=== PATIENT | male | born 1980 | race Caucasian/White ===

== ENCOUNTER 2016-09-09 16:44 | Emergency (ER) | payer SELFPAY ==
--- NOTE | 2016-09-09 17:22 | ED CLINICAL REPORT ---
Clinical Report - Physicians/Mid Levels [facility] [address] [place] [address] 09/09/2016 16:45 Patient: HELEN TATE Time Seen: 17:07 Sep 09 2016. Arrived- By private vehicle. HISTORY OF PRESENT ILLNESS Chief Complaint: SKIN RASH. This started 4 days. It is described as painful. It has been located on the right ring finger. (reports area of swelling, redness to digit, no injury h/o). REVIEW OF SYSTEMS No fever, cough, difficulty breathing, hoarseness or eye irritation. No nausea. All systems otherwise negative, except as recorded above. PAST HISTORY Tetanus immunization status is up-to-date. SOCIAL HISTORY Smoker- current status unknown. No alcohol use or drug use. ADDITIONAL NOTES The nursing notes have been reviewed. PHYSICAL EXAM Vital Signs: 09/09/2016 16:53 BP: 130/74. HR: 78. RR: 18. O2 saturation: 99%. Temp: 97.9 F. Pain level now: 4/10. Appearance: Alert. No acute distress. ENT: Ears normal. Nose normal. CVS: Normal heart rate and rhythm. Heart sounds normal. Respiratory: No respiratory distress. Breath sounds normal. Skin: Skin warm. Erythema (on radial aspect of 4th digit with erythema at edge of nail, no baum swelling). Tender indurated area. Cellulitis. There is warmth, tenderness and swelling. Extremities: Extremities nontender. PROGRESS AND PROCEDURES Incision & Drainage of Abscess: Time: 17:30 Sep 09 2016. Time-out completed immediately before the procedure. The abscess is located (r. 4th digit, ring finger). The risks of the procedure, benefits and alternatives were explained. Consent was obtained. Anesthesia provided by digital block using 0.50% Marcaine no epi. Skin cleansed with Betadine. The abscess was incised with a #11 surgical blade. A small amount of pus was drained. Course of Care: no signs of tenosynovitis, good rom/ good strength. no lymphagetic streaking, no baum surface swelling/ erythema or tenderness, no signs of felon. NO injury h/o Isolated paronychia that has not been treated. Patient is stable. Physical exam findings are improved. Symptoms better. Patient/family counseled. Disposition: Discharged. CLINICAL IMPRESSION Paronychia right ring finger. INSTRUCTIONS (warm soaks with salt water to finger for 5 mins about 4-5 x daily elevate motrin/tylenol). Prescription Medications: Keflex 500 mg: take 1 capsule orally every 6 hours for 10 days. No refill. Substitution is permissible. OTC Medications: Take OTC medications according to label instructions. Available over the counter. Acetaminophen (available over the counter): take according to label instructions. Motrin (available over the counter): take according to label instructions. Follow-up: Follow up with your doctor Tuesday in three days as needed. (Electronically signed by Bernice Peguero P.A.-C 09/09/2016 17:32)
--- NOTE | 2016-09-09 17:22 | ED ORDER SUMMARY ---
..... Patient: HELEN TATE OrderSheet [facility] VisitID: [id number] [address] [address] 36y, M Registration Date/Time: 09/09/2016 ORDER SHEET Weight: 90.7 kg (stated) Allergies: No Known Drug Allergy GENERAL ORDERS: MEDICATION ORDERS: Keflex PO 500 mg (NOW) (17:22 09/09/2016 Dinh Darling) (17:41 Teresa Pineda) IV FLUIDS: ORDER SHEET NOTES: [Electronically signed by Bernice Peguero P.A.-C (17:32 09/09/2016)] [Electronically signed by Priscilla Zafar R.N. (17:43 09/09/2016)] [Electronically locked/signed by Priscilla Zafar R.N. (17:43 09/09/2016)]
--- NOTE | 2016-09-09 17:22 | ED NURSING NOTES ---
Clinical Report - Nurses [address] [place] [address] 09/09/2016 16:45 Patient: HELEN TATE TRIAGE Triage time 16:52. Acuity: LEVEL 4. Chief Complaint: RIGHT UPPER EXTREMITY PAIN, SWELLING and REDNESS. Alert. No acute distress. SEPSIS SCREEN: Sepsis Screen: negative. Negative (no infection suspected/documented). MARIE COMA SCORE: [place] Coma Scale: 15- eyes open spontaneously (4); best verbal response- oriented x 4 (5); best motor response- obeys commands (6). --16:57 Priscilla Zafar R.N. 16:53 09/09/16. BP: 130/74 taken on the left arm, while sitting. HR: 78. RR: 18. O2 saturation: 99%. Temp: 97.9 F. Pain level now: 11/15. --16:57 Priscilla Zafar R.N. 16:53 09/09/16. BP: 130/74 taken on the left arm, while sitting. HR: 78. RR: 18. O2 saturation: 99%. Temp: 97.9 F. Pain level now: 11/15. --16:57 Priscilla Zafar R.N. Weight: 90.7 kg stated. Height/Length: 72 inches Per Patient. BMI: 27.1. --16:57 Priscilla Zafar R.N. Medications None. --16:55 Priscilla Zafar R.N. Medication/allergy information source: the patient. --16:57 Priscilla Zafar R.N. Allergies No Known Drug Allergy. --16:55 Priscilla Zafar R.N. History Arrived by private vehicle. Historian: patient. No primary care physician. An injury may have occurred. Location of injuries: right hand. This occurred (3 days ago, painful prior to the swelling). It is described as radiating (base of the finger.). ( "Maybe a spider bite "). He has had swelling and redness. No itching. Treatment REPORT WRITER: None. PAST MEDICAL HX: Negative. Tetanus status: unknown. SURGERY HX: No history of previous surgery. SOCIAL HX: Heavy tobacco smoker- less than 1 pack per day. No alcohol use or drug use. FALL RISK ASSESSMENT: Fall risk assessment completed. No fall risk identified. NUTRITIONAL RISK ASSESSMENT: The nutritional risk assessment revealed no deficiencies. FUNCTIONAL ASSESSMENT: Functional assessment: no impairments noted. LEARNING NEEDS ASSESSMENT: The learning needs assessment revealed no barriers. SKIN INTEGRITY ASSESSMENT: Skin integrity risk assessment completed. No skin integrity risk identified. --16:57 Priscilla Zafar R.N. Interventions ID band on patient. To room. --16:57 Priscilla Zafar R.N. PHYSICAL ASSESSMENT Ambulatory to room. Patient gowned. GENERAL / NEURO / PSYCH: Appears in pain and anxious. EXTREMITIES: Erythema on the extremities. Limited ROM present. Upper extremity edema. Right hand. SKIN: Skin intact. Skin is warm and dry. --16:58 Priscilla Zafar R.N. NURSING PROGRESS NOTES Extremity elevated. Patient gowned. Two patient identifiers checked. Call light placed in reach. Side rails up x 1. Bed placed in lowest position. Brakes of bed on. --16:58 Priscilla Zafar R.N. 17:31 09/09/2016 Keflex (Cephalexin) PO 500 mg given. Allergies verified and confirmed 5 rights. --17:41 Priscilla Zafar R.N. 17:30. Applied clean dressing consisting of Band-Aid, following the application of antibiotic ointment (To rt ring finger wound). --17:42 Priscilla Zafar R.N. DISPOSITION / DISCHARGE Condition at departure: improved. No learning barriers present. Discharge instructions provided and reviewed with the patient. Reviewed medication(s) side effects, precautions, dosing and course information. Prescription(s) given to the patient. Patient verbalized understanding. Written instructions provided in [place]. The patient was discharged home. He left the Emergency Department ambulatory and via private vehicle. Patient driving. Medication list reviewed and validated. --17:42 Priscilla Zafar R.N. 16:53 09/09/16. BP: 130/74 taken on the left arm, while sitting. HR: 78. RR: 18. O2 saturation: 99%. Temp: 97.9 F. Pain level now: 11/15. --17:42 Priscilla Zafar R.N. Locked/Released at 09/09/2016 17:43 by Priscilla Zafar R.N.
--- NOTE | 2016-09-09 17:22 | ED NURSING NOTES ---
Clinical Report - Nurses [address] [address] [place] [address] 09/09/2016 16:45 Patient: HELEN TATE TRIAGE Triage time 16:52. Acuity: LEVEL 4. Chief Complaint: RIGHT UPPER EXTREMITY PAIN, SWELLING and REDNESS. Alert. No acute distress. SEPSIS SCREEN: Sepsis Screen: negative. Negative (no infection suspected/documented). MARIE COMA SCORE: [place] Coma Scale: 15- eyes open spontaneously (4); best verbal response- oriented x 4 (5); best motor response- obeys commands (6). --16:57 Priscilla Zafar R.N. 16:53 09/09/16. BP: 130/74 taken on the left arm, while sitting. HR: 78. RR: 18. O2 saturation: 99%. Temp: 97.9 F. Pain level now: 11/15. --16:57 Priscilla Zafar R.N. 16:53 09/09/16. BP: 130/74 taken on the left arm, while sitting. HR: 78. RR: 18. O2 saturation: 99%. Temp: 97.9 F. Pain level now: 11/15. --16:57 Priscilla Zafar R.N. Weight: 90.7 kg stated. Height/Length: 72 inches Per Patient. BMI: 27.1. --16:57 Priscilla Zafar R.N. Medications None. --16:55 Priscilla Zafar R.N. Medication/allergy information source: the patient. --16:57 Priscilla Zafar R.N. Allergies No Known Drug Allergy. --16:55 Priscilla Zafar R.N. History Arrived by private vehicle. Historian: patient. No primary care physician. An injury may have occurred. Location of injuries: right hand. This occurred (3 days ago, painful prior to the swelling). It is described as radiating (base of the finger.). ( "Maybe a spider bite "). He has had swelling and redness. No itching. Treatment BRAKE TESTER: None. PAST MEDICAL HX: Negative. Tetanus status: unknown. SURGERY HX: No history of previous surgery. SOCIAL HX: Heavy tobacco smoker- less than 1 pack per day. No alcohol use or drug use. FALL RISK ASSESSMENT: Fall risk assessment completed. No fall risk identified. NUTRITIONAL RISK ASSESSMENT: The nutritional risk assessment revealed no deficiencies. FUNCTIONAL ASSESSMENT: Functional assessment: no impairments noted. LEARNING NEEDS ASSESSMENT: The learning needs assessment revealed no barriers. SKIN INTEGRITY ASSESSMENT: Skin integrity risk assessment completed. No skin integrity risk identified. --16:57 Priscilla Zafar R.N. Interventions ID band on patient. To room. --16:57 Priscilla Zafar R.N. PHYSICAL ASSESSMENT Ambulatory to room. Patient gowned. GENERAL / NEURO / PSYCH: Appears in pain and anxious. EXTREMITIES: Erythema on the extremities. Limited ROM present. Upper extremity edema. Right hand. SKIN: Skin intact. Skin is warm and dry. --16:58 Priscilla Zafar R.N. NURSING PROGRESS NOTES Extremity elevated. Patient gowned. Two patient identifiers checked. Call light placed in reach. Side rails up x 1. Bed placed in lowest position. Brakes of bed on. --16:58 Priscilla Zafar R.N. 17:31 09/09/2016 Keflex (Cephalexin) PO 500 mg given. Allergies verified and confirmed 5 rights. --17:41 Priscilla Zafar R.N. 17:30. Applied clean dressing consisting of Band-Aid, following the application of antibiotic ointment (To rt ring finger wound). --17:42 Priscilla Zafar R.N. DISPOSITION / DISCHARGE Condition at departure: improved. No learning barriers present. Discharge instructions provided and reviewed with the patient. Reviewed medication(s) side effects, precautions, dosing and course information. Prescription(s) given to the patient. Patient verbalized understanding. Written instructions provided in Dutch. The patient was discharged home. He left the Emergency Department ambulatory and via private vehicle. Patient driving. Medication list reviewed and validated. --17:42 Priscilla Zafar R.N. 16:53 09/09/16. BP: 130/74 taken on the left arm, while sitting. HR: 78. RR: 18. O2 saturation: 99%. Temp: 97.9 F. Pain level now: 11/15. --17:42 Priscilla Zafar R.N. Locked/Released at 09/09/2016 17:43 by Priscilla Zafar R.N.
--- NOTE | 2016-09-09 17:22 | ED CLINICAL REPORT ---
Clinical Report - Physicians/Mid Levels [facility] [address] [place] [address] 09/09/2016 16:45 Patient: HELEN TATE Time Seen: 17:07 Sep 09 2016. Arrived- By private vehicle. HISTORY OF PRESENT ILLNESS Chief Complaint: SKIN RASH. This started 4 days. It is described as painful. It has been located on the right ring finger. (reports area of swelling, redness to digit, no injury h/o). REVIEW OF SYSTEMS No fever, cough, difficulty breathing, hoarseness or eye irritation. No nausea. All systems otherwise negative, except as recorded above. PAST HISTORY Tetanus immunization status is up-to-date. SOCIAL HISTORY Smoker- current status unknown. No alcohol use or drug use. ADDITIONAL NOTES The nursing notes have been reviewed. PHYSICAL EXAM Vital Signs: 09/09/2016 16:53 BP: 130/74. HR: 78. RR: 18. O2 saturation: 99%. Temp: 97.9 F. Pain level now: 4/10. Appearance: Alert. No acute distress. ENT: Ears normal. Nose normal. CVS: Normal heart rate and rhythm. Heart sounds normal. Respiratory: No respiratory distress. Breath sounds normal. Skin: Skin warm. Erythema (on radial aspect of 4th digit with erythema at edge of nail, no baum swelling). Tender indurated area. Cellulitis. There is warmth, tenderness and swelling. Extremities: Extremities nontender. PROGRESS AND PROCEDURES Incision & Drainage of Abscess: Time: 17:30 Sep 09 2016. Time-out completed immediately before the procedure. The abscess is located (r. 4th digit, ring finger). The risks of the procedure, benefits and alternatives were explained. Consent was obtained. Anesthesia provided by digital block using 0.50% Marcaine no epi. Skin cleansed with Betadine. The abscess was incised with a #11 surgical blade. A small amount of pus was drained. Course of Care: no signs of tenosynovitis, good rom/ good strength. no lymphagetic streaking, no baum surface swelling/ erythema or tenderness, no signs of felon. NO injury h/o Isolated paronychia that has not been treated. Patient is stable. Physical exam findings are improved. Symptoms better. Patient/family counseled. Disposition: Discharged. CLINICAL IMPRESSION Paronychia right ring finger. INSTRUCTIONS (warm soaks with salt water to finger for 5 mins about 4-5 x daily elevate motrin/tylenol). Prescription Medications: Keflex 500 mg: take 1 capsule orally every 6 hours for 10 days. No refill. Substitution is permissible. OTC Medications: Take OTC medications according to label instructions. Available over the counter. Acetaminophen (available over the counter): take according to label instructions. Motrin (available over the counter): take according to label instructions. Follow-up: Follow up with your doctor Tuesday in three days as needed. (Electronically signed by Bernice Peguero P.A.-C 09/09/2016 17:32)
--- NOTE | 2016-09-09 17:22 | ED ORDER SUMMARY ---
..... Patient: HELEN TATE OrderSheet [facility] VisitID: [id number] [address] [place] [address] 36y, M Registration Date/Time: 09/09/2016 ORDER SHEET Weight: 90.7 kg (stated) Allergies: No Known Drug Allergy GENERAL ORDERS: MEDICATION ORDERS: Keflex PO 500 mg (NOW) (17:22 09/09/2016 Dinh Darling) (17:41 Teresa Pineda) IV FLUIDS: ORDER SHEET NOTES: [Electronically signed by Bernice Peguero P.A.-C (17:32 09/09/2016)] [Electronically signed by Priscilla Zafar R.N. (17:43 09/09/2016)] [Electronically locked/signed by Priscilla Zafar R.N. (17:43 09/09/2016)]
--- NOTE | 2016-09-09 17:43 | ED DISCHARGE INSTRUCTIONS ---
Patient: HELEN TATE General Instructions [facility] VisitID: [id number] [place] [address] 36y, M Registration Date/Time: 09/09/2016 Paronychia right ring finger. INSTRUCTIONS (warm soaks with salt water to finger for 5 mins about 4-5 x daily elevate motrin/tylenol). Prescription Medications: Keflex 500 mg: take 1 capsule orally every 6 hours for 10 days. No refill. Substitution is permissible. OTC Medications: Take OTC medications according to label instructions. Available over the counter. Acetaminophen (available over the counter): take according to label instructions. Motrin (available over the counter): take according to label instructions. Follow-up: Follow up with your doctor Tuesday in three days as needed. ADDITIONAL INFORMATION Paronychia, Finger Or Toe Paronychia is an infection alongside the fingernail or toenail. It usually occurs from an opening in the cuticle or an ingrown toenail which lets bacteria under the skin. If there is pus present, the infection will need to be drained. If the infection is early, antibiotic treatment alone may be all that you need. Healing will take about 12 weeks. Home care The following guidelines will help you care for your wound at home: Twice a day for the first three days, clean and soak the toe or finger as follows: Soak your foot or hand in a tub of warm water for five minutes. Or, hold your toe or finger under a faucet of warm running water for five minutes. Clean any remaining crust away with soap and water using a cotton-tipped applicator. Apply antibiotic ointment to the infected area. Change the dressing daily or whenever it becomes soiled. If you were prescribed antibiotics, take them as directed until they are all gone. If your infection is on a toe, wear comfortable shoes with a lot of toe room, or open-toe sandals, while your toe is healing. You may use acetaminophen or ibuprofen to control pain, unless another medicine was prescribed.If you have chronic liver or kidney disease or ever had a stomach ulcer or GI bleeding, talk with your doctor before using these medicines. Follow-up care Follow up with your doctor or this facility as explained by our staff. When to seek medical care Get prompt medical attention if any of the following occur: Increasing redness, pain or swelling of the finger or toe Red streaks in the skin leading away from the wound Pus or fluid drainage Fever of 100.4F (38C) or higher, or as directed by your health care provider Cephalexin Monohydrate Oral tablet What is this medicine? CEPHALEXIN (sef a WANDA in) is a cephalosporin antibiotic. It is used to treat certain kinds of bacterial infections It will not work for colds, flu, or other viral infections. How should I use this medicine? Take this medicine by mouth with a full glass of water. Follow the directions on the prescription label. This medicine can be taken with or without food. Take your medicine at regular intervals. Do not take your medicine more often than directed. Take all of your medicine as directed even if you think you are better. Do not skip doses or stop your medicine early. Talk to your streetsweeper operator regarding the use of this medicine in children. While this drug may be prescribed for selected conditions, precautions do apply. What side effects may I notice from receiving this medicine? Side effects that you should report to your doctor or health rn patient care as soon as possible: allergic reactions like skin rash, itching or hives, swelling of the face, lips, or tongue breathing problems pain or trouble passing urine redness, blistering, peeling or loosening of the skin, including inside the mouth severe or watery diarrhea unusually weak or tired yellowing of the eyes, skin Side effects that usually do not require medical attention (report to your doctor or health rn patient care if they continue or are bothersome): gas or heartburn genital or anal irritation headache joint or muscle pain nausea, vomiting What may interact with this medicine? probenecid some other antibiotics What if I miss a dose? If you miss a dose, take it as soon as you can. If it is almost time for your next dose, take only that dose. Do not take double or extra doses. There should be at least 4 to 6 hours between doses. Where should I keep my medicine? Keep out of the reach of children. Store at room temperature between 59 and 86 degrees F (15 and 30 degrees C). Throw away any unused medicine after the expiration date. What should I tell my health care provider before I take this medicine? They need to know if you have any of these conditions: kidney disease stomach or intestine problems, especially colitis an unusual or allergic reaction to cephalexin, other cephalosporins, penicillins, other antibiotics, medicines, foods, dyes or preservatives or trying to get breast-feeding What should I watch for while using this medicine? Tell your doctor or health rn patient care if your symptoms do not begin to improve in a few days. Do not treat diarrhea with over the counter products. Contact your doctor if you have diarrhea that lasts more than 2 days or if it is severe and watery. If you have diabetes, you may get a false-positive result for sugar in your urine. Check with your doctor or health rn patient care. You have been given the following additional information: Paronychia Cephalexin Monohydrate Oral tablet (Electronically signed by Bernice Peguero P.A.-C 09/09/2016 17:32)
--- NOTE | 2016-09-09 17:43 | ED MED RECONCILIATION SUMMARY ---
Patient: HELEN TATE Medication Reconciliation Report [facility] VisitID: [id number] [address] [place] [place] [address] 36y, M Registration Date/Time: 09/09/2016 Weight: 90.7 kg Height/Length: 72 in. BMI: 27.1 ALLERGIES: No Known Drug Allergy The patient's Home Medications are listed below: NONE. The source(s) of the original Home Medication information: patient The following Medications were given to the patient in the Emergency Department: Keflex [PO] PO 500 mg, administered: 09/09/2016 5:31:00 PM The following Medications were prescribed to the patient: Take OTC medications according to label instructions. Available over the counter. -- Bernice Peguero, P.A.-C Acetaminophen (available over the counter): take according to label instructions. -- Bernice Peguero, P.A.-C Motrin (available over the counter): take according to label instructions. -- Bernice Peguero, P.A.-C Keflex 500 mg: take 1 capsule orally every 6 hours for 10 days. No refill. Substitution is permissible. -- Bernice Peguero, P.A.-C
--- NOTE | 2016-09-09 17:43 | ED MAR SUMMARY ---
..... Medication Administration Record [facility] [address] [place] [address] Patient: HELEN TATE Visit ID: [id number] 36y, M Weight: 90.7 kg Height/Length: 72 in BMI: 27.1 ALLERGIES: No Known Drug Allergy Given 17:31 09/09/2016 Priscilla Zafar R.N. Medication Administered: KEFLEX [PO] (CEPHALEXIN), Dose: 500 mg PO. Medication Ordered: Keflex PO 500 mg (NOW).
--- NOTE | 2016-09-09 17:43 | ED DISCHARGE INSTRUCTIONS ---
Patient: HELEN TATE General Instructions [facility] VisitID: [id number] [place] [address] 36y, M Registration Date/Time: 09/09/2016 Paronychia right ring finger. INSTRUCTIONS (warm soaks with salt water to finger for 5 mins about 4-5 x daily elevate motrin/tylenol). Prescription Medications: Keflex 500 mg: take 1 capsule orally every 6 hours for 10 days. No refill. Substitution is permissible. OTC Medications: Take OTC medications according to label instructions. Available over the counter. Acetaminophen (available over the counter): take according to label instructions. Motrin (available over the counter): take according to label instructions. Follow-up: Follow up with your doctor Tuesday in three days as needed. ADDITIONAL INFORMATION Paronychia, Finger Or Toe Paronychia is an infection alongside the fingernail or toenail. It usually occurs from an opening in the cuticle or an ingrown toenail which lets bacteria under the skin. If there is pus present, the infection will need to be drained. If the infection is early, antibiotic treatment alone may be all that you need. Healing will take about 12 weeks. Home care The following guidelines will help you care for your wound at home: Twice a day for the first three days, clean and soak the toe or finger as follows: Soak your foot or hand in a tub of warm water for five minutes. Or, hold your toe or finger under a faucet of warm running water for five minutes. Clean any remaining crust away with soap and water using a cotton-tipped applicator. Apply antibiotic ointment to the infected area. Change the dressing daily or whenever it becomes soiled. If you were prescribed antibiotics, take them as directed until they are all gone. If your infection is on a toe, wear comfortable shoes with a lot of toe room, or open-toe sandals, while your toe is healing. You may use acetaminophen or ibuprofen to control pain, unless another medicine was prescribed.If you have chronic liver or kidney disease or ever had a stomach ulcer or GI bleeding, talk with your doctor before using these medicines. Follow-up care Follow up with your doctor or this facility as explained by our staff. When to seek medical care Get prompt medical attention if any of the following occur: Increasing redness, pain or swelling of the finger or toe Red streaks in the skin leading away from the wound Pus or fluid drainage Fever of 100.4F (38C) or higher, or as directed by your health care provider Cephalexin Monohydrate Oral tablet What is this medicine? CEPHALEXIN (sef a WANDA in) is a cephalosporin antibiotic. It is used to treat certain kinds of bacterial infections It will not work for colds, flu, or other viral infections. How should I use this medicine? Take this medicine by mouth with a full glass of water. Follow the directions on the prescription label. This medicine can be taken with or without food. Take your medicine at regular intervals. Do not take your medicine more often than directed. Take all of your medicine as directed even if you think you are better. Do not skip doses or stop your medicine early. Talk to your authorization manager regarding the use of this medicine in children. While this drug may be prescribed for selected conditions, precautions do apply. What side effects may I notice from receiving this medicine? Side effects that you should report to your doctor or health career services assistant as soon as possible: allergic reactions like skin rash, itching or hives, swelling of the face, lips, or tongue breathing problems pain or trouble passing urine redness, blistering, peeling or loosening of the skin, including inside the mouth severe or watery diarrhea unusually weak or tired yellowing of the eyes, skin Side effects that usually do not require medical attention (report to your doctor or health career services assistant if they continue or are bothersome): gas or heartburn genital or anal irritation headache joint or muscle pain nausea, vomiting What may interact with this medicine? probenecid some other antibiotics What if I miss a dose? If you miss a dose, take it as soon as you can. If it is almost time for your next dose, take only that dose. Do not take double or extra doses. There should be at least 4 to 6 hours between doses. Where should I keep my medicine? Keep out of the reach of children. Store at room temperature between 59 and 86 degrees F (15 and 30 degrees C). Throw away any unused medicine after the expiration date. What should I tell my health care provider before I take this medicine? They need to know if you have any of these conditions: kidney disease stomach or intestine problems, especially colitis an unusual or allergic reaction to cephalexin, other cephalosporins, penicillins, other antibiotics, medicines, foods, dyes or preservatives or trying to get breast-feeding What should I watch for while using this medicine? Tell your doctor or health career services assistant if your symptoms do not begin to improve in a few days. Do not treat diarrhea with over the counter products. Contact your doctor if you have diarrhea that lasts more than 2 days or if it is severe and watery. If you have diabetes, you may get a false-positive result for sugar in your urine. Check with your doctor or health career services assistant. You have been given the following additional information: Paronychia Cephalexin Monohydrate Oral tablet (Electronically signed by Bernice Peguero P.A.-C 09/09/2016 17:32)
--- NOTE | 2016-09-09 17:43 | ED MED RECONCILIATION SUMMARY ---
Patient: HELEN TATE Medication Reconciliation Report [facility] VisitID: [id number] [address] [place] [place] [address] 36y, M Registration Date/Time: 09/09/2016 Weight: 90.7 kg Height/Length: 72 in. BMI: 27.1 ALLERGIES: No Known Drug Allergy The patient's Home Medications are listed below: NONE. The source(s) of the original Home Medication information: patient The following Medications were given to the patient in the Emergency Department: Keflex [PO] PO 500 mg, administered: 09/09/2016 5:31:00 PM The following Medications were prescribed to the patient: Take OTC medications according to label instructions. Available over the counter. -- Bernice Peguero, P.A.-C Acetaminophen (available over the counter): take according to label instructions. -- Bernice Peguero, P.A.-C Motrin (available over the counter): take according to label instructions. -- Bernice Peguero, P.A.-C Keflex 500 mg: take 1 capsule orally every 6 hours for 10 days. No refill. Substitution is permissible. -- Bernice Peguero, P.A.-C
--- NOTE | 2016-09-09 17:43 | ED MAR SUMMARY ---
..... Medication Administration Record [facility] [address] [place] [address] Patient: HELEN TATE Visit ID: [id number] 36y, M Weight: 90.7 kg Height/Length: 72 in BMI: 27.1 ALLERGIES: No Known Drug Allergy Given 17:31 09/09/2016 Priscilla Zafar R.N. Medication Administered: KEFLEX [PO] (CEPHALEXIN), Dose: 500 mg PO. Medication Ordered: Keflex PO 500 mg (NOW).
== END 2016-09-09 17:35 | disposition home or self-care (01) ==
LOC: ED SRH 16:44
DX: L03.011 Cellulitis of right finger (principal)

== ENCOUNTER 2016-12-21 19:25 | Emergency (ER) | payer SELFPAY ==
--- NOTE | 2016-12-21 21:12 | ED ORDER SUMMARY ---
..... Patient: HELEN TATE OrderSheet [facility] VisitID: [id number] [place] [address] 36y, M Registration Date/Time: 12/21/2016 ORDER SHEET Weight: 88.4 kg (stated) Allergies: None GENERAL ORDERS: Wound Irrigation (19:55 12/21/2016 RMarsden R.N. per protocol) (19:55 RMarsden R.N.) Dress Wounds (21:12/21/2016 RMarsden R.N. per protocol) (21:05 RMarsden R.N.) MEDICATION ORDERS: LET Topical 1 application (NOW) (19:55 12/21/2016 RMarsden R.N. per protocol) (19:56 RMarsden R.N.) Hydrocodone-APAP PO 5/325 mg (NOW, HIGH ALERT MEDICATION) (20:33 12/21/2016 Liana Pastor) (Ack 20:46 Josepiveantonio R.N.) (20:47 RMarsangus R.N.) IV FLUIDS: ORDER SHEET NOTES: [Electronically signed by Ta Guadarrama Dr. (21:20 12/21/2016)] [Electronically signed by Igor Arguelles R.N. (21:33 12/21/2016)] [Electronically signed by Igor Arguelles R.N. (21:33 12/21/2016)] [Electronically locked/signed by Igor Arguelles R.N. (:33 12/21/2016)]
--- NOTE | 2016-12-21 21:12 | ED CLINICAL REPORT ---
Clinical Report - Physicians/Mid Levels [facility] [address] [place] [address] 12/21/2016 19:30 Patient: HELEN TATE Time Seen: 19:43; initial patient contact. HISTORY OF PRESENT ILLNESS Chief Complaint: INJURY TO FACE. Location of injuries- face. The injury occurred just prior to arrival. Occurred at home. The patient sustained a single moderate blow with a stick. The patient complains of moderate pain. The patient sustained a moderate blow to the head. No neck pain, loss of consciousness or seizure. Not dazed. REVIEW OF SYSTEMS No seizure, numbness, hearing loss or difficulty breathing. He sustained skin laceration. All systems otherwise negative, except as recorded above. PAST HISTORY Paronychia. Tetanus immunization status is up-to-date. Additional Surgeries: no known surgeries. Medications: None. Allergies: None. SOCIAL HISTORY Current every day smoker. No alcohol use or drug use. ADDITIONAL NOTES The nursing notes have been reviewed. PHYSICAL EXAM Vital Signs: 12/21/2016 19:35 BP: 136/84. HR: 81. RR: 15. O2 saturation: 97%. Temp: 98 F. Pain level now: 6/10. Have been reviewed as normal. Appearance: Alert. No acute distress. Head: No swelling of head. Eyes: Pupils equal, round and reactive to light. EOM intact. ENT: No dental injury. Neck: Painless ROM. Non-tender. Skin: Single medium-sized, subcutaneous, stellate 4.0 cm laceration to face. Neuro: Oriented X 3. PROGRESS AND PROCEDURES Laceration Repair: Time: 21:11. Location: face. Per protocol, time-out completed immediately before the procedure. Length: 4 cm. Complexity: complex (requiring alignment of multiple flaps and revision of wound margins). Wound depth/shape- subcutaneous, stellate and irregular. Distal neuro/vascular/tendon status normal. Local anesthesia provided using 1% lidocaine. Prepped with Hibiclens. Wound explored, irrigated and examined to the base in bloodless field extensively with normal saline. Closure of superficial layer: 4-0 Prolene (6 sutures). Post-procedure: he is stable and there are no complications. Bleeding is controlled and neuro-vascular status is intact distal to the wound. Tetanus immunization up-to-date. Estimated blood loss: 5 mL. Disposition: Discharged home in good and improved condition. Condition: good. CLINICAL IMPRESSION Single deep laceration. Complicated repair (Right preauricular area). INSTRUCTIONS Protect wound and keep wound area clean. You may wash wounds briefly, then dry. Apply bacitracin twice daily. Sutures/tony should be removed in five days. Prescription Medications: Hydrocodone/APAP 5mg / 325mg: take 1 orally every 6 hours as needed for pain. Dispense fifteen (15). No refill. Follow-up: Screening today revealed the patient's blood pressure to be in the normal range. Follow-up with: [facility], [facility], , [address] [place] [address], [address] [place] [address] Follow up in five for suture removal. Call for an appointment. (Electronically signed by Ta Guadarrama Dr. 12/21/2016 21:20)
--- NOTE | 2016-12-21 21:12 | ED NURSING NOTES ---
Clinical Report - Nurses [facility] [address] [place] [address] 12/21/2016 19:30 Patient: HELEN TATE TRIAGE Triage time 19:35. Acuity: LEVEL 4. Chief Complaint: INJURY TO HEAD. 19:40 12/21/16. Alert. No acute distress. SEPSIS SCREEN: Sepsis Screen. Negative (no infection suspected/documented). FERNANDO COMA SCORE: Fernando Coma Scale: 15- eyes open spontaneously (4); best verbal response- oriented x 4 (5); best motor response- obeys commands (6). --19:40 Dariana Stevenson R.N. 19:35 12/21/16. BP: 136/84. HR: 81. RR: 15. O2 saturation: 97%. Temp: 98 F. Pain level now: 01/15. --19:40 Dariana Stevenson R.N. Weight: 88.4 kg stated. Height/Length: 75 inches Per Patient. BMI: 24.4. --19:38 Dariana Stevenson R.N. Medications None. --19:37 Dariana Stevenson R.N. Allergies None. --19:37 Dariana Stevenson R.N. History Arrived by private vehicle. Historian: patient. Accompanied by friend. Primary physician (No PCP). This occurred just prior to arrival. Occurred at friend's house. He sustained a laceration. Mechanism of injury: a blow. ( Patient states "I was using a wood inspector plug seam and a branch fell and hit me on the head"). He has had a headache. No loss of consciousness. No neck pain. Treatment FOSTER PARENT: None. PAST MEDICAL HX: Tetanus status: up-to-date. Immunizations: up-to-date. SOCIAL HX: Heavy tobacco smoker- 1 pack per day. No alcohol use or drug use. FALL RISK ASSESSMENT: Fall risk assessment completed. No fall risk identified. NUTRITIONAL RISK ASSESSMENT: The nutritional risk assessment revealed no deficiencies. FUNCTIONAL ASSESSMENT: Functional assessment: no impairments noted. LEARNING NEEDS ASSESSMENT: The learning needs assessment revealed no barriers. SKIN INTEGRITY ASSESSMENT: Skin integrity risk assessment completed. No skin integrity risk identified. --19:40 Dariana Stevenson R.N. PROBLEMS: Paronychia. --19:37 Dariana Stevenson R.N. ADDITIONAL SURGERIES: no known surgeries. Interventions ID band on patient. To treatment room. --19:40 Daraina Stevenson R.N. PHYSICAL ASSESSMENT 19:42 12/21/16. Ambulatory to room. GENERAL / NEURO / PSYCH: Alert. Oriented X 4. Appears in no acute distress. HEENT: Head: tenderness and laceration present in the right temporal area. Pupils equal, round and reactive to light. Voice within normal limits. No dental injury noted. Mucous membranes are pink. CVS: Capillary refill less than 2 seconds. BACK: ROM normal to the neck and back. SKIN: Skin is warm and dry. --19:42 Dariana Stevenson R.N. NURSING PROGRESS NOTES 19:42 12/21/16. Two patient identifiers checked. Call light placed in reach. Bed placed in lowest position. Brakes of bed on. Patient ready for evaluation- chart flagged and notification provided. Patient informed about reason for wait and about plan of care. --19:42 Dariana Stevenson R.N. 19:56 12/21/2016 LET Topical Topical Solution 1 application. Placed on a cotton ball. Allergies verified and confirmed 5 rights. --19:56 Dariana Stevenson R.N. 20:47 12/21/2016 Hydrocodone-APAP (Hydrocodone-Acetaminophen) PO 5/325 mg Tablets 1 tab given. Allergies verified, confirmed 5 rights and sedative warning given to the patient. --20:47 Dariana Stevenson R.N. <<STRICKEN ENTRY-- 20:56 12/21/16. BP: 91/53. HR: 77. RR: 17. O2 saturation: 100%. Temp: deferred. Pain level now: 02/14. --21:01 Dariana Stevenson R.N. --END STRIKE>> Correction. --21:11 Dariana Stevenson R.N. 20:56 12/21/16. BP: 115/77 (regular adult cuff) taken on the left arm, while sitting. HR: 77. RR: 17. O2 saturation: 100%. Temp: deferred. Pain level now: 02/14. --21:01 Dariana Stevenson R.N. 21:05 12/21/2016 LET Topical Response: no adverse reaction pain is gone now. Symptoms have improved the patient feels better. 12/21/2016 20:56 BP: 91/53. HR: 77. RR: 17. O2 saturation: 100%. Pain level now: 02/14. --21:06 Dariana Stevenson R.N. 21:06 12/21/2016 Hydrocodone-APAP PO Response: no adverse reaction pain is gone now. Symptoms have improved the patient feels better. 12/21/2016 20:56 BP: 91/53. HR: 77. RR: 17. O2 saturation: 100%. Pain level now: 02/14. --21:06 Dariana Stevenson R.N. 20:56 12/21/16. BP: 115/77 (regular adult cuff) taken on the left arm, while sitting. HR: 77. RR: 17. O2 saturation: 100%. Temp: deferred. Pain level now: 02/14. --21:12 Dariana Stevenson R.N. 21:04. WOUND REPAIR: Wound repair performed by ED physician. Assisted by one tech. The wound is located on the right ear. Preparation. Wound cleansed per physician and irrigated per physician. Procedure: wound repaired with sutures. Post-procedure: he was stable, no complications, bleeding controlled and dressing applied. Total time of assist / procedure: 15 minutes. --21:32 Igor Arguelles R.N. 21:26. The patient is calm and resting quietly. GENERAL / NEURO / PSYCH: Alert. Oriented X 4. RESPIRATORY: No respiratory distress. SKIN: Skin is warm and dry. --21:32 Igor Arguelles RGardenia DISPOSITION / DISCHARGE Departure time: 21:28. Condition at departure: stable. ( Patient came to nursing station asking about how long it would be - that they need to leave to flower buncher or picker there kids - Vitals not done at pt request). No learning barriers present. Discharge instructions provided and reviewed with the patient. Reviewed medication(s) side effects, precautions, dosing and course information. Prescription(s) given to the patient. Patient verbalized understanding. Written instructions provided in [place]. The patient was discharged home and accompanied by pharmacy technician trainee. He left the Emergency Department ambulatory and via private vehicle. Mgmt Consultant driving. FALL RISK ASSESSMENT: Fall risk assessment completed. No fall risk identified. --21:30 Igor Arguelles R.N. 20:56 12/21/16. BP: 115/77 (regular adult cuff) taken on the left arm, while sitting. HR: 77. RR: 17. O2 saturation: 100%. Temp: deferred. Pain level now: 02/14. --21:33 Dariana Stevenson R.N. Locked/Released at 12/21/2016 21:33 by Igor Arguelles R.N.
--- NOTE | 2016-12-21 21:12 | ED CLINICAL REPORT ---
Clinical Report - Physicians/Mid Levels [facility] [address] [place] [address] 12/21/2016 19:30 Patient: HELEN TATE Time Seen: 19:43; initial patient contact. HISTORY OF PRESENT ILLNESS Chief Complaint: INJURY TO FACE. Location of injuries- face. The injury occurred just prior to arrival. Occurred at home. The patient sustained a single moderate blow with a stick. The patient complains of moderate pain. The patient sustained a moderate blow to the head. No neck pain, loss of consciousness or seizure. Not dazed. REVIEW OF SYSTEMS No seizure, numbness, hearing loss or difficulty breathing. He sustained skin laceration. All systems otherwise negative, except as recorded above. PAST HISTORY Paronychia. Tetanus immunization status is up-to-date. Additional Surgeries: no known surgeries. Medications: None. Allergies: None. SOCIAL HISTORY Current every day smoker. No alcohol use or drug use. ADDITIONAL NOTES The nursing notes have been reviewed. PHYSICAL EXAM Vital Signs: 12/21/2016 19:35 BP: 136/84. HR: 81. RR: 15. O2 saturation: 97%. Temp: 98 F. Pain level now: 6/10. Have been reviewed as normal. Appearance: Alert. No acute distress. Head: No swelling of head. Eyes: Pupils equal, round and reactive to light. EOM intact. ENT: No dental injury. Neck: Painless ROM. Non-tender. Skin: Single medium-sized, subcutaneous, stellate 4.0 cm laceration to face. Neuro: Oriented X 3. PROGRESS AND PROCEDURES Laceration Repair: Time: 21:11. Location: face. Per protocol, time-out completed immediately before the procedure. Length: 4 cm. Complexity: complex (requiring alignment of multiple flaps and revision of wound margins). Wound depth/shape- subcutaneous, stellate and irregular. Distal neuro/vascular/tendon status normal. Local anesthesia provided using 1% lidocaine. Prepped with Hibiclens. Wound explored, irrigated and examined to the base in bloodless field extensively with normal saline. Closure of superficial layer: 4-0 Prolene (6 sutures). Post-procedure: he is stable and there are no complications. Bleeding is controlled and neuro-vascular status is intact distal to the wound. Tetanus immunization up-to-date. Estimated blood loss: 5 mL. Disposition: Discharged home in good and improved condition. Condition: good. CLINICAL IMPRESSION Single deep laceration. Complicated repair (Right preauricular area). INSTRUCTIONS Protect wound and keep wound area clean. You may wash wounds briefly, then dry. Apply bacitracin twice daily. Sutures/tony should be removed in five days. Prescription Medications: Hydrocodone/APAP 5mg / 325mg: take 1 orally every 6 hours as needed for pain. Dispense fifteen (15). No refill. Follow-up: Screening today revealed the patient's blood pressure to be in the normal range. Follow-up with: [facility], [facility], , [address] [place] [address], [address] [place] [address] Follow up in five for suture removal. Call for an appointment. (Electronically signed by Ta Guadarrama Dr. 12/21/2016 21:20)
--- NOTE | 2016-12-21 21:12 | ED ORDER SUMMARY ---
..... Patient: HELEN TATE OrderSheet [facility] VisitID: [id number] [place] [address] 36y, M Registration Date/Time: 12/21/2016 ORDER SHEET Weight: 88.4 kg (stated) Allergies: None GENERAL ORDERS: Wound Irrigation (19:55 12/21/2016 RMarsden R.N. per protocol) (19:55 RMarsden R.N.) Dress Wounds (21:12/21/2016 RMarsden R.N. per protocol) (21:05 RMarsden R.N.) MEDICATION ORDERS: LET Topical 1 application (NOW) (19:55 12/21/2016 RMarsden R.N. per protocol) (19:56 RMarsden R.N.) Hydrocodone-APAP PO 5/325 mg (NOW, HIGH ALERT MEDICATION) (20:33 12/21/2016 Liana Pastor) (Ack 20:46 Josepiveantonio R.N.) (20:47 RMarsangus R.N.) IV FLUIDS: ORDER SHEET NOTES: [Electronically signed by Ta Guadarrama Dr. (21:20 12/21/2016)] [Electronically signed by Igor Arguelles R.N. (21:33 12/21/2016)] [Electronically signed by Igor Arguelles R.N. (21:33 12/21/2016)] [Electronically locked/signed by Igor Arguelles R.N. (:33 12/21/2016)]
--- NOTE | 2016-12-21 21:12 | ED NURSING NOTES ---
Clinical Report - Nurses [facility] [address] [place] [address] 12/21/2016 19:30 Patient: HELEN TATE TRIAGE Triage time 19:35. Acuity: LEVEL 4. Chief Complaint: INJURY TO HEAD. 19:40 12/21/16. Alert. No acute distress. SEPSIS SCREEN: Sepsis Screen. Negative (no infection suspected/documented). FERNANDO COMA SCORE: Fernando Coma Scale: 15- eyes open spontaneously (4); best verbal response- oriented x 4 (5); best motor response- obeys commands (6). --19:40 Dariana Stevenson R.N. 19:35 12/21/16. BP: 136/84. HR: 81. RR: 15. O2 saturation: 97%. Temp: 98 F. Pain level now: 01/15. --19:40 Dariana Stevenson R.N. Weight: 88.4 kg stated. Height/Length: 75 inches Per Patient. BMI: 24.4. --19:38 Dariana Stevenson R.N. Medications None. --19:37 Dariana Stevenson R.N. Allergies None. --19:37 Dariana Stevenson R.N. History Arrived by private vehicle. Historian: patient. Accompanied by friend. Primary physician (No PCP). This occurred just prior to arrival. Occurred at friend's house. He sustained a laceration. Mechanism of injury: a blow. ( Patient states "I was using a wood work from home and a branch fell and hit me on the head"). He has had a headache. No loss of consciousness. No neck pain. Treatment SENIOR STRATEGY MANAGER: None. PAST MEDICAL HX: Tetanus status: up-to-date. Immunizations: up-to-date. SOCIAL HX: Heavy tobacco smoker- 1 pack per day. No alcohol use or drug use. FALL RISK ASSESSMENT: Fall risk assessment completed. No fall risk identified. NUTRITIONAL RISK ASSESSMENT: The nutritional risk assessment revealed no deficiencies. FUNCTIONAL ASSESSMENT: Functional assessment: no impairments noted. LEARNING NEEDS ASSESSMENT: The learning needs assessment revealed no barriers. SKIN INTEGRITY ASSESSMENT: Skin integrity risk assessment completed. No skin integrity risk identified. --19:40 Dariana Stevenson R.N. PROBLEMS: Paronychia. --19:37 Dariana Stevenson R.N. ADDITIONAL SURGERIES: no known surgeries. Interventions ID band on patient. To treatment room. --19:40 Dariana Stevenson R.N. PHYSICAL ASSESSMENT 19:42 12/21/16. Ambulatory to room. GENERAL / NEURO / PSYCH: Alert. Oriented X 4. Appears in no acute distress. HEENT: Head: tenderness and laceration present in the right temporal area. Pupils equal, round and reactive to light. Voice within normal limits. No dental injury noted. Mucous membranes are pink. CVS: Capillary refill less than 2 seconds. BACK: ROM normal to the neck and back. SKIN: Skin is warm and dry. --19:42 Dariana Stevenson R.N. NURSING PROGRESS NOTES 19:42 12/21/16. Two patient identifiers checked. Call light placed in reach. Bed placed in lowest position. Brakes of bed on. Patient ready for evaluation- chart flagged and notification provided. Patient informed about reason for wait and about plan of care. --19:42 Dariana Stevenson R.N. 19:56 12/21/2016 LET Topical Topical Solution 1 application. Placed on a cotton ball. Allergies verified and confirmed 5 rights. --19:56 Dariana Stevenson R.N. 20:47 12/21/2016 Hydrocodone-APAP (Hydrocodone-Acetaminophen) PO 5/325 mg Tablets 1 tab given. Allergies verified, confirmed 5 rights and sedative warning given to the patient. --20:47 Dariana Stevenson R.N. <<STRICKEN ENTRY-- 20:56 12/21/16. BP: 91/53. HR: 77. RR: 17. O2 saturation: 100%. Temp: deferred. Pain level now: 02/14. --21:01 Dariana Stevenson R.N. --END STRIKE>> Correction. --21:11 Dariana Stevenson R.N. 20:56 12/21/16. BP: 115/77 (regular adult cuff) taken on the left arm, while sitting. HR: 77. RR: 17. O2 saturation: 100%. Temp: deferred. Pain level now: 02/14. --21:01 Dariana Stevenson R.N. 21:05 12/21/2016 LET Topical Response: no adverse reaction pain is gone now. Symptoms have improved the patient feels better. 12/21/2016 20:56 BP: 91/53. HR: 77. RR: 17. O2 saturation: 100%. Pain level now: 02/14. --21:06 Dariana Stevenson R.N. 21:06 12/21/2016 Hydrocodone-APAP PO Response: no adverse reaction pain is gone now. Symptoms have improved the patient feels better. 12/21/2016 20:56 BP: 91/53. HR: 77. RR: 17. O2 saturation: 100%. Pain level now: 02/14. --21:06 Dariana Stevenson R.N. 20:56 12/21/16. BP: 115/77 (regular adult cuff) taken on the left arm, while sitting. HR: 77. RR: 17. O2 saturation: 100%. Temp: deferred. Pain level now: 02/14. --21:12 Dariana Stevenson R.N. 21:04. WOUND REPAIR: Wound repair performed by ED physician. Assisted by one tech. The wound is located on the right ear. Preparation. Wound cleansed per physician and irrigated per physician. Procedure: wound repaired with sutures. Post-procedure: he was stable, no complications, bleeding controlled and dressing applied. Total time of assist / procedure: 15 minutes. --21:32 Igor Arguelles R.N. 21:26. The patient is calm and resting quietly. GENERAL / NEURO / PSYCH: Alert. Oriented X 4. RESPIRATORY: No respiratory distress. SKIN: Skin is warm and dry. --21:32 Igor Arguelles RGardenia DISPOSITION / DISCHARGE Departure time: 21:28. Condition at departure: stable. 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 No learning barriers present. Discharge instructions provided and reviewed with the patient. Reviewed medication(s) side effects, precautions, dosing and course information. Prescription(s) given to the patient. Patient verbalized understanding. Written instructions provided in Burundian. The patient was discharged home and accompanied by die maintenance technician. He left the Emergency Department ambulatory and via private vehicle. Foxing Painter driving. FALL RISK ASSESSMENT: Fall risk assessment completed. No fall risk identified. --21:30 Igor Arguelles R.N. 20:56 12/21/16. BP: 115/77 (regular adult cuff) taken on the left arm, while sitting. HR: 77. RR: 17. O2 saturation: 100%. Temp: deferred. Pain level now: 02/14. --21:33 Dariana Stevenson R.N. Locked/Released at 12/21/2016 21:33 by Igor Arguelles R.N.
--- NOTE | 2016-12-21 21:34 | ED DISCHARGE INSTRUCTIONS ---
Patient: HELEN TATE General Instructions [facility] VisitID: [id number] [place] [address] 36y, M Registration Date/Time: 12/21/2016 Single deep laceration. Complicated repair (Right preauricular area). INSTRUCTIONS Protect wound and keep wound area clean. You may wash wounds briefly, then dry. Apply bacitracin twice daily. Sutures/tony should be removed in five days. Prescription Medications: Hydrocodone/APAP 5mg / 325mg: take 1 orally every 6 hours as needed for pain. Dispense fifteen (15). No refill. Follow-up: Screening today revealed the patient's blood pressure to be in the normal range. Follow-up with: [facility], [facility], , [address] [place] [address], [id number], [place] [id number] Follow up in five for suture removal. Call for an appointment. ADDITIONAL INFORMATION Laceration (All Closures) Alaceration is a cut through the skin. This will usually require stitches (sutures) or tony if it is deep. Minor cuts may be treated with a surgical tape closure orskin glue. Home care The following guidelines will help you care for your laceration at home: Extremity, face, or trunk wounds Keep the wound clean and dry. If a bandage was applied and it becomes wet or dirty, replace it. Otherwise, leave it in place for the first 24 hours. If stitches or tony were used, clean the wound daily. After removing the bandage, wash the area with soap and water. Use a wet cotton swab to loosen and remove any blood or crust that forms. The doctor may prescribe an antibiotic cream or ointment to prevent infection. Do not stop taking this medication until you have finished the prescribed course or the doctor tells you to stop. The doctor may also prescribe medications for pain. Follow the doctors instructions for taking these medications. You may remove the bandage to shower as usual after the first 24 hours, but do not soak the area in water (no swimming) until the stitches or tony are removed. If surgical tape was used, keep the area clean and dry. If it becomes wet, blot it dry with a towel. If skin glue was used, do not scratch, rub, or pick at the adhesive film. Do not place tape directly over the film. Do not apply liquid, ointment, or creams to the wound while the film is in place. Do not clean the wound with peroxide and do not apply ointments. Avoid activities that cause heavy sweating until the film has fallen off. Protect the wound from prolonged exposure to sunlight or tanning lamps. You may shower as usual but do not soak the wound in water (no baths or swimming). The film will fall off by itself in 510 days. Scalp wounds During the first two days, you may carefully rinse your hair in the shower to remove blood, glass or dirt particles. After two days, you may shower and shampoo your hair normally. Do not soak your scalp in the tub or go swimming until the stitches or tony have been removed. Talk with your doctor before applying any antibiotic ointment to the wound. Mouth wounds Eat soft foods to reduce pain. If the cut is inside of your mouth, clean by rinsing after each meal and at bedtime with a mixture of equal parts water and hydrogen peroxide (do not swallow!). Or, you can use a cotton swab to directly apply hydrogen peroxide onto the cut. Mouth wounds can be painful when eating. You may use an [id number] local numbing solution for pain relief. If this is not available, you may use any numbing solution for teething babies. You may apply this directly to the sores with a cotton-tip swab or with your finger. Follow-up care Follow up with your health care provider. Most skin wounds heal within ten days. Mouth and facial wounds heal within five days. However, even with proper treatment, a wound infection may sometimes occur. Therefore, you should check the wound daily for signs of infection listed below. Stitches should be removed from the face within five days; stitches and tony should be removed from other parts of the body within 714 days. If dissolving stitches were used in the mouth, these will fall out or dissolve without the need for removal. If tape closures were used, remove them yourself if they have not fallen off after 7 days. Ifskin glue was used, the film will fall off by itself in 510 days. When to seek medical care Get prompt medical attention if any of these occur: Bleeding not controlled by direct pressure Signs of infection, including increasing pain in the wound, increasing wound redness or swelling, or pus coming from the wound Fever of 100.4F (38C) or higher, or as directed by your health care provider Stitches or tony come apart or fall out or surgical tape falls off before 7 days Wound edges re-open Laceration (All Closures) Alaceration is a cut through the skin. This will usually require stitches (sutures) or tony if it is deep. Minor cuts may be treated with a surgical tape closure orskin glue. Home care The following guidelines will help you care for your laceration at home: Extremity, face, or trunk wounds Keep the wound clean and dry. If a bandage was applied and it becomes wet or dirty, replace it. Otherwise, leave it in place for the first 24 hours. If stitches or tony were used, clean the wound daily. After removing the bandage, wash the area with soap and water. Use a wet cotton swab to loosen and remove any blood or crust that forms. The doctor may prescribe an antibiotic cream or ointment to prevent infection. Do not stop taking this medication until you have finished the prescribed course or the doctor tells you to stop. The doctor may also prescribe medications for pain. Follow the doctors instructions for taking these medications. You may remove the bandage to shower as usual after the first 24 hours, but do not soak the area in water (no swimming) until the stitches or tony are removed. If surgical tape was used, keep the area clean and dry. If it becomes wet, blot it dry with a towel. If skin glue was used, do not scratch, rub, or pick at the adhesive film. Do not place tape directly over the film. Do not apply liquid, ointment, or creams to the wound while the film is in place. Do not clean the wound with peroxide and do not apply ointments. Avoid activities that cause heavy sweating until the film has fallen off. Protect the wound from prolonged exposure to sunlight or tanning lamps. You may shower as usual but do not soak the wound in water (no baths or swimming). The film will fall off by itself in 510 days. Scalp wounds During the first two days, you may carefully rinse your hair in the shower to remove blood, glass or dirt particles. After two days, you may shower and shampoo your hair normally. Do not soak your scalp in the tub or go swimming until the stitches or tony have been removed. Talk with your doctor before applying any antibiotic ointment to the wound. Mouth wounds Eat soft foods to reduce pain. If the cut is inside of your mouth, clean by rinsing after each meal and at bedtime with a mixture of equal parts water and hydrogen peroxide (do not swallow!). Or, you can use a cotton swab to directly apply hydrogen peroxide onto the cut. Mouth wounds can be painful when eating. You may use an gtew-qqc-kqwqomv local numbing solution for pain relief. If this is not available, you may use any numbing solution for teething babies. You may apply this directly to the sores with a cotton-tip swab or with your finger. Follow-up care Follow up with your health care provider. Most skin wounds heal within ten days. Mouth and facial wounds heal within five days. However, even with proper treatment, a wound infection may sometimes occur. Therefore, you should check the wound daily for signs of infection listed below. Stitches should be removed from the face within five days; stitches and tony should be removed from other parts of the body within 714 days. If dissolving stitches were used in the mouth, these will fall out or dissolve without the need for removal. If tape closures were used, remove them yourself if they have not fallen off after 7 days. Ifskin glue was used, the film will fall off by itself in 510 days. When to seek medical care Get prompt medical attention if any of these occur: Bleeding not controlled by direct pressure Signs of infection, including increasing pain in the wound, increasing wound redness or swelling, or pus coming from the wound Fever of 100.4F (38C) or higher, or as directed by your health care provider Stitches or tony come apart or fall out or surgical tape falls off before 7 days Wound edges re-open Laceration, Face (Suture Or Tape) Alaceration is a cut through the skin. This will require stitches if it is deep. Minor cuts may be treated with surgical tape. Home care The following guidelines will help you care for your laceration at home: If a bandage was applied and it becomes wet or dirty, replace it. Otherwise, leave it in place for the first 24 hours, then change it once a day or as directed. If sutures were used, clean the wound daily: After removing the bandage, wash the area with soap and water. Use a wet cotton swab to loosen and remove any blood or crust that forms. After cleaning, keep the wound clean and dry. Talk with your doctor before applying any antibiotic ointment to the wound. Reapply a fresh bandage. You may remove the bandage to shower as usual after the first 24 hours, but do not soak the area in water (no swimming) until the sutures are removed. If surgical tape was used, keep the area clean and dry. If it becomes wet, blot it dry with a towel. The doctor may prescribe an antibiotic cream or ointment to prevent infection. Do not stop taking this medication until you have have finished the prescribed course or the doctor tells you to stop. The doctor may also prescribe medications for pain. Follow the doctor's instructions for taking these medications.If you have chronic liver or kidney disease or ever had a stomach ulcer or GI bleeding, talk with your doctor before using these medicines. Follow-up care Follow up with your health care provider. Most facial cuts heal in five days with no problem. However, even with proper treatment, a wound infection sometimes occurs. Therefore, check the wound daily for the warning signs listed below. Stitches should not be left in the face for more thanfivedays; otherwise, permanent stitch adam may form. If surgical tape closures were used, you may remove them yourself afterfivedays, if they have not fallen off by then. When to seek medical care Get prompt medical attention if any of these occur: Increasing pain in the wound Redness, swelling, or pus coming from the wound If sutures come apart or fall out before 5 days If the surgical tape closures fall off before 5 days, or the wound edges reopen Fever of 100.4F (38C) or higher, or as directed by your health care provider Bleeding not controlled by direct pressure Hydrocodone Bitartrate, Acetaminophen Oral tablet What is this medicine? ACETAMINOPHEN; HYDROCODONE (a set a SILVIA rogerio fen; jona droe KOE done) is a pain reliever. It is used to treat mild to moderate pain. How should I use this medicine? Take this medicine by mouth. Swallow it with a full glass of water. Follow the directions on the prescription label. If the medicine upsets your stomach, take the medicine with food or milk. Do not take more than you are told to take. Talk to your score caller regarding the use of this medicine in children. This medicine is not approved for use in children. What side effects may I notice from receiving this medicine? Side effects that you should report to your doctor or health healthcare science specialist as soon as possible: allergic reactions like skin rash, itching or hives, swelling of the face, lips, or tongue breathing problems confusion feeling faint or lightheaded, falls stomach pain yellowing of the eyes or skin Side effects that usually do not require medical attention (report to your doctor or health healthcare science specialist if they continue or are bothersome): nausea, vomiting stomach upset What may interact with this medicine? alcohol antihistamines isoniazid medicines for depression, anxiety, or psychotic disturbances medicines for sleep muscle relaxants naltrexone narcotic medicines (opiates) for pain phenobarbital ritonavir tramadol What if I miss a dose? If you miss a dose, take it as soon as you can. If it is almost time for your next dose, take only that dose. Do not take double or extra doses. Where should I keep my medicine? Keep out of the reach of children. This medicine can be abused. Keep your medicine in a safe place to protect it from theft. Do not share this medicine with anyone. Selling or giving away this medicine is dangerous and against the law. Store at room temperature between 15 and 30 degrees C (59 and 86 degrees F). Protect from light. Keep container tightly closed. Throw away any unused medicine after the expiration date. Discard unused medicine and used packaging carefully. Pets and children can be harmed if they find used or lost packages. What should I tell my health care provider before I take this medicine? They need to know if you have any of these conditions: brain tumor Crohn's disease, inflammatory bowel disease, or ulcerative colitis drink more than 3 alcohol-containing drinks per day drug abuse or addiction head injury heart or circulation problems kidney disease or problems going to the bathroom liver disease lung disease, asthma, or breathing problems an unusual or allergic reaction to acetaminophen, hydrocodone, other opioid analgesics, other medicines, foods, dyes, or preservatives or trying to get breast-feeding What should I watch for while using this medicine? Tell your doctor or health healthcare science specialist if your pain does not go away, if it gets worse, or if you have new or a different type of pain. You may develop tolerance to the medicine. Tolerance means that you will need a higher dose of the medicine for pain relief. Tolerance is normal and is expected if you take the medicine for a long time. Do not suddenly stop taking your medicine because you may develop a severe reaction. Your body becomes used to the medicine. This does NOT mean you are addicted. Addiction is a behavior related to getting and using a drug for a non-medical reason. If you have pain, you have a medical reason to take pain medicine. Your doctor will tell you how much medicine to take. If your doctor wants you to stop the medicine, the dose will be slowly lowered over time to avoid any side effects. You may get drowsy or dizzy when you first start taking the medicine or change doses. Do not drive, use machinery, or do anything that may be dangerous until you know how the medicine affects you. Stand or sit up slowly. There are different types of narcotic medicines (opiates) for pain. If you take more than one type at the same time, you may have more side effects. Give your health care provider a list of all medicines you use. Your doctor will tell you how much medicine to take. Do not take more medicine than directed. Call emergency for help if you have problems breathing. The medicine will cause constipation. Try to have a bowel movement at least every 2 to 3 days. If you do not have a bowel movement for 3 days, call your doctor or health healthcare science specialist. Too much acetaminophen can be very dangerous. Do not take Tylenol (acetaminophen) or medicines that contain acetaminophen with this medicine. Many non-prescription medicines contain acetaminophen. Always read the labels carefully. You have been given the following additional information: Laceration, All Laceration, All Laceration, Face (Suture Or Tape) Hydrocodone Bitartrate, Acetaminophen Oral tablet (Electronically signed by Ta Guadarrama Dr. 12/21/2016 21:20)
--- NOTE | 2016-12-21 21:34 | ED MAR SUMMARY ---
..... Medication Administration Record [facility] [address] [place] [address] Patient: HELEN TATE Visit ID: [id number] 36y, M Weight: 88.4 kg Height/Length: 75 in BMI: 24.4 ALLERGIES: None Given 19:56 12/21/2016 Dariana Stevenson, RGarrettN. Medication Administered: LET [TOPICAL], Dose: 1 application Topical Solution Topical. Medication Ordered: LET Topical 1 application (NOW). Given 20:47 12/21/2016 Dariana Stevenson, R.N. Medication Administered: HYDROCODONE-APAP [PO] (HYDROCODONE-ACETAMINOPHEN), Dose: 1 tab 5/325 mg Tablets PO. Medication Ordered: Hydrocodone-APAP PO 5/325 mg (NOW, HIGH ALERT MEDICATION).
--- NOTE | 2016-12-21 21:34 | ED DISCHARGE INSTRUCTIONS ---
Patient: HELEN TATE General Instructions [facility] VisitID: [id number] [place] [address] 36y, M Registration Date/Time: 12/21/2016 Single deep laceration. Complicated repair (Right preauricular area). INSTRUCTIONS Protect wound and keep wound area clean. You may wash wounds briefly, then dry. Apply bacitracin twice daily. Sutures/tony should be removed in five days. Prescription Medications: Hydrocodone/APAP 5mg / 325mg: take 1 orally every 6 hours as needed for pain. Dispense fifteen (15). No refill. Follow-up: Screening today revealed the patient's blood pressure to be in the normal range. Follow-up with: [facility], [facility], , [address] [place] [address], [address], [place] [id number] Follow up in five for suture removal. Call for an appointment. ADDITIONAL INFORMATION Laceration (All Closures) Alaceration is a cut through the skin. This will usually require stitches (sutures) or tony if it is deep. Minor cuts may be treated with a surgical tape closure orskin glue. Home care The following guidelines will help you care for your laceration at home: Extremity, face, or trunk wounds Keep the wound clean and dry. If a bandage was applied and it becomes wet or dirty, replace it. Otherwise, leave it in place for the first 24 hours. If stitches or tony were used, clean the wound daily. After removing the bandage, wash the area with soap and water. Use a wet cotton swab to loosen and remove any blood or crust that forms. The doctor may prescribe an antibiotic cream or ointment to prevent infection. Do not stop taking this medication until you have finished the prescribed course or the doctor tells you to stop. The doctor may also prescribe medications for pain. Follow the doctors instructions for taking these medications. You may remove the bandage to shower as usual after the first 24 hours, but do not soak the area in water (no swimming) until the stitches or tony are removed. If surgical tape was used, keep the area clean and dry. If it becomes wet, blot it dry with a towel. If skin glue was used, do not scratch, rub, or pick at the adhesive film. Do not place tape directly over the film. Do not apply liquid, ointment, or creams to the wound while the film is in place. Do not clean the wound with peroxide and do not apply ointments. Avoid activities that cause heavy sweating until the film has fallen off. Protect the wound from prolonged exposure to sunlight or tanning lamps. You may shower as usual but do not soak the wound in water (no baths or swimming). The film will fall off by itself in 510 days. Scalp wounds During the first two days, you may carefully rinse your hair in the shower to remove blood, glass or dirt particles. After two days, you may shower and shampoo your hair normally. Do not soak your scalp in the tub or go swimming until the stitches or tony have been removed. Talk with your doctor before applying any antibiotic ointment to the wound. Mouth wounds Eat soft foods to reduce pain. If the cut is inside of your mouth, clean by rinsing after each meal and at bedtime with a mixture of equal parts water and hydrogen peroxide (do not swallow!). Or, you can use a cotton swab to directly apply hydrogen peroxide onto the cut. Mouth wounds can be painful when eating. You may use an avko-ihx-binhjpv local numbing solution for pain relief. If this is not available, you may use any numbing solution for teething babies. You may apply this directly to the sores with a cotton-tip swab or with your finger. Follow-up care Follow up with your health care provider. Most skin wounds heal within ten days. Mouth and facial wounds heal within five days. However, even with proper treatment, a wound infection may sometimes occur. Therefore, you should check the wound daily for signs of infection listed below. Stitches should be removed from the face within five days; stitches and tony should be removed from other parts of the body within 714 days. If dissolving stitches were used in the mouth, these will fall out or dissolve without the need for removal. If tape closures were used, remove them yourself if they have not fallen off after 7 days. Ifskin glue was used, the film will fall off by itself in 510 days. When to seek medical care Get prompt medical attention if any of these occur: Bleeding not controlled by direct pressure Signs of infection, including increasing pain in the wound, increasing wound redness or swelling, or pus coming from the wound Fever of 100.4F (38C) or higher, or as directed by your health care provider Stitches or tony come apart or fall out or surgical tape falls off before 7 days Wound edges re-open Laceration (All Closures) Alaceration is a cut through the skin. This will usually require stitches (sutures) or tony if it is deep. Minor cuts may be treated with a surgical tape closure orskin glue. Home care The following guidelines will help you care for your laceration at home: Extremity, face, or trunk wounds Keep the wound clean and dry. If a bandage was applied and it becomes wet or dirty, replace it. Otherwise, leave it in place for the first 24 hours. If stitches or tony were used, clean the wound daily. After removing the bandage, wash the area with soap and water. Use a wet cotton swab to loosen and remove any blood or crust that forms. The doctor may prescribe an antibiotic cream or ointment to prevent infection. Do not stop taking this medication until you have finished the prescribed course or the doctor tells you to stop. The doctor may also prescribe medications for pain. Follow the doctors instructions for taking these medications. You may remove the bandage to shower as usual after the first 24 hours, but do not soak the area in water (no swimming) until the stitches or tony are removed. If surgical tape was used, keep the area clean and dry. If it becomes wet, blot it dry with a towel. If skin glue was used, do not scratch, rub, or pick at the adhesive film. Do not place tape directly over the film. Do not apply liquid, ointment, or creams to the wound while the film is in place. Do not clean the wound with peroxide and do not apply ointments. Avoid activities that cause heavy sweating until the film has fallen off. Protect the wound from prolonged exposure to sunlight or tanning lamps. You may shower as usual but do not soak the wound in water (no baths or swimming). The film will fall off by itself in 510 days. Scalp wounds During the first two days, you may carefully rinse your hair in the shower to remove blood, glass or dirt particles. After two days, you may shower and shampoo your hair normally. Do not soak your scalp in the tub or go swimming until the stitches or tony have been removed. Talk with your doctor before applying any antibiotic ointment to the wound. Mouth wounds Eat soft foods to reduce pain. If the cut is inside of your mouth, clean by rinsing after each meal and at bedtime with a mixture of equal parts water and hydrogen peroxide (do not swallow!). Or, you can use a cotton swab to directly apply hydrogen peroxide onto the cut. Mouth wounds can be painful when eating. You may use an xukh-ify-buracok local numbing solution for pain relief. If this is not available, you may use any numbing solution for teething babies. You may apply this directly to the sores with a cotton-tip swab or with your finger. Follow-up care Follow up with your health care provider. Most skin wounds heal within ten days. Mouth and facial wounds heal within five days. However, even with proper treatment, a wound infection may sometimes occur. Therefore, you should check the wound daily for signs of infection listed below. Stitches should be removed from the face within five days; stitches and tony should be removed from other parts of the body within 714 days. If dissolving stitches were used in the mouth, these will fall out or dissolve without the need for removal. If tape closures were used, remove them yourself if they have not fallen off after 7 days. Ifskin glue was used, the film will fall off by itself in 510 days. When to seek medical care Get prompt medical attention if any of these occur: Bleeding not controlled by direct pressure Signs of infection, including increasing pain in the wound, increasing wound redness or swelling, or pus coming from the wound Fever of 100.4F (38C) or higher, or as directed by your health care provider Stitches or tony come apart or fall out or surgical tape falls off before 7 days Wound edges re-open Laceration, Face (Suture Or Tape) Alaceration is a cut through the skin. This will require stitches if it is deep. Minor cuts may be treated with surgical tape. Home care The following guidelines will help you care for your laceration at home: If a bandage was applied and it becomes wet or dirty, replace it. Otherwise, leave it in place for the first 24 hours, then change it once a day or as directed. If sutures were used, clean the wound daily: After removing the bandage, wash the area with soap and water. Use a wet cotton swab to loosen and remove any blood or crust that forms. After cleaning, keep the wound clean and dry. Talk with your doctor before applying any antibiotic ointment to the wound. Reapply a fresh bandage. You may remove the bandage to shower as usual after the first 24 hours, but do not soak the area in water (no swimming) until the sutures are removed. If surgical tape was used, keep the area clean and dry. If it becomes wet, blot it dry with a towel. The doctor may prescribe an antibiotic cream or ointment to prevent infection. Do not stop taking this medication until you have have finished the prescribed course or the doctor tells you to stop. The doctor may also prescribe medications for pain. Follow the doctor's instructions for taking these medications.If you have chronic liver or kidney disease or ever had a stomach ulcer or GI bleeding, talk with your doctor before using these medicines. Follow-up care Follow up with your health care provider. Most facial cuts heal in five days with no problem. However, even with proper treatment, a wound infection sometimes occurs. Therefore, check the wound daily for the warning signs listed below. Stitches should not be left in the face for more thanfivedays; otherwise, permanent stitch adam may form. If surgical tape closures were used, you may remove them yourself afterfivedays, if they have not fallen off by then. When to seek medical care Get prompt medical attention if any of these occur: Increasing pain in the wound Redness, swelling, or pus coming from the wound If sutures come apart or fall out before 5 days If the surgical tape closures fall off before 5 days, or the wound edges reopen Fever of 100.4F (38C) or higher, or as directed by your health care provider Bleeding not controlled by direct pressure Hydrocodone Bitartrate, Acetaminophen Oral tablet What is this medicine? ACETAMINOPHEN; HYDROCODONE (a set a SILVIA rogerio fen; jona droe KOE done) is a pain reliever. It is used to treat mild to moderate pain. How should I use this medicine? Take this medicine by mouth. Swallow it with a full glass of water. Follow the directions on the prescription label. If the medicine upsets your stomach, take the medicine with food or milk. Do not take more than you are told to take. Talk to your line service technician regarding the use of this medicine in children. This medicine is not approved for use in children. What side effects may I notice from receiving this medicine? Side effects that you should report to your doctor or health wound care coordinator as soon as possible: allergic reactions like skin rash, itching or hives, swelling of the face, lips, or tongue breathing problems confusion feeling faint or lightheaded, falls stomach pain yellowing of the eyes or skin Side effects that usually do not require medical attention (report to your doctor or health wound care coordinator if they continue or are bothersome): nausea, vomiting stomach upset What may interact with this medicine? alcohol antihistamines isoniazid medicines for depression, anxiety, or psychotic disturbances medicines for sleep muscle relaxants naltrexone narcotic medicines (opiates) for pain phenobarbital ritonavir tramadol What if I miss a dose? If you miss a dose, take it as soon as you can. If it is almost time for your next dose, take only that dose. Do not take double or extra doses. Where should I keep my medicine? Keep out of the reach of children. This medicine can be abused. Keep your medicine in a safe place to protect it from theft. Do not share this medicine with anyone. Selling or giving away this medicine is dangerous and against the law. Store at room temperature between 15 and 30 degrees C (59 and 86 degrees F). Protect from light. Keep container tightly closed. Throw away any unused medicine after the expiration date. Discard unused medicine and used packaging carefully. Pets and children can be harmed if they find used or lost packages. What should I tell my health care provider before I take this medicine? They need to know if you have any of these conditions: brain tumor Crohn's disease, inflammatory bowel disease, or ulcerative colitis drink more than 3 alcohol-containing drinks per day drug abuse or addiction head injury heart or circulation problems kidney disease or problems going to the bathroom liver disease lung disease, asthma, or breathing problems an unusual or allergic reaction to acetaminophen, hydrocodone, other opioid analgesics, other medicines, foods, dyes, or preservatives or trying to get breast-feeding What should I watch for while using this medicine? Tell your doctor or health wound care coordinator if your pain does not go away, if it gets worse, or if you have new or a different type of pain. You may develop tolerance to the medicine. Tolerance means that you will need a higher dose of the medicine for pain relief. Tolerance is normal and is expected if you take the medicine for a long time. Do not suddenly stop taking your medicine because you may develop a severe reaction. Your body becomes used to the medicine. This does NOT mean you are addicted. Addiction is a behavior related to getting and using a drug for a non-medical reason. If you have pain, you have a medical reason to take pain medicine. Your doctor will tell you how much medicine to take. If your doctor wants you to stop the medicine, the dose will be slowly lowered over time to avoid any side effects. You may get drowsy or dizzy when you first start taking the medicine or change doses. Do not drive, use machinery, or do anything that may be dangerous until you know how the medicine affects you. Stand or sit up slowly. There are different types of narcotic medicines (opiates) for pain. If you take more than one type at the same time, you may have more side effects. Give your health care provider a list of all medicines you use. Your doctor will tell you how much medicine to take. Do not take more medicine than directed. Call emergency for help if you have problems breathing. The medicine will cause constipation. Try to have a bowel movement at least every 2 to 3 days. If you do not have a bowel movement for 3 days, call your doctor or health wound care coordinator. Too much acetaminophen can be very dangerous. Do not take Tylenol (acetaminophen) or medicines that contain acetaminophen with this medicine. Many non-prescription medicines contain acetaminophen. Always read the labels carefully. You have been given the following additional information: Laceration, All Laceration, All Laceration, Face (Suture Or Tape) Hydrocodone Bitartrate, Acetaminophen Oral tablet (Electronically signed by Ta Guadarrama Dr. 12/21/2016 21:20)
--- NOTE | 2016-12-21 21:34 | ED MED RECONCILIATION SUMMARY ---
Patient: HELEN TATE Medication Reconciliation Report [facility] VisitID: [id number] [address] [place] [address] 36y, M Registration Date/Time: 12/21/2016 Weight: 88.4 kg Height/Length: 75 in. BMI: 24.4 ALLERGIES: None The patient's Home Medications are listed below: NONE. The source(s) of the original Home Medication information: Not obtained. The following Medications were given to the patient in the Emergency Department: LET [Topical] Topical 1 application, administered: 12/21/2016 7:56:00 PM Hydrocodone-APAP [PO] PO 1 tab, administered: 12/21/2016 8:47:00 PM The following Medications were prescribed to the patient: Hydrocodone/APAP 5mg / 325mg: take 1 orally every 6 hours as needed for pain. Dispense fifteen (15). No refill. -- Ta Guadarrama Dr.
--- NOTE | 2016-12-21 21:34 | ED MED RECONCILIATION SUMMARY ---
Patient: HELEN TATE Medication Reconciliation Report [facility] VisitID: [id number] [address] [place] [address] 36y, M Registration Date/Time: 12/21/2016 Weight: 88.4 kg Height/Length: 75 in. BMI: 24.4 ALLERGIES: None The patient's Home Medications are listed below: NONE. The source(s) of the original Home Medication information: Not obtained. The following Medications were given to the patient in the Emergency Department: LET [Topical] Topical 1 application, administered: 12/21/2016 7:56:00 PM Hydrocodone-APAP [PO] PO 1 tab, administered: 12/21/2016 8:47:00 PM The following Medications were prescribed to the patient: Hydrocodone/APAP 5mg / 325mg: take 1 orally every 6 hours as needed for pain. Dispense fifteen (15). No refill. -- Ta Guadarrama Dr.
--- NOTE | 2016-12-21 21:34 | ED MAR SUMMARY ---
..... Medication Administration Record [facility] [address] [place] [address] Patient: HELEN TATE Visit ID: [id number] 36y, M Weight: 88.4 kg Height/Length: 75 in BMI: 24.4 ALLERGIES: None Given 19:56 12/21/2016 Dariana Stevenson, RGarrettN. Medication Administered: LET [TOPICAL], Dose: 1 application Topical Solution Topical. Medication Ordered: LET Topical 1 application (NOW). Given 20:47 12/21/2016 Dariana Stevenson, R.N. Medication Administered: HYDROCODONE-APAP [PO] (HYDROCODONE-ACETAMINOPHEN), Dose: 1 tab 5/325 mg Tablets PO. Medication Ordered: Hydrocodone-APAP PO 5/325 mg (NOW, HIGH ALERT MEDICATION).
== END 2016-12-21 21:28 | disposition home or self-care (01) ==
LOC: ED SRH 19:25
DX: S01.311A Laceration without foreign body of right ear, initial encounter (principal); W20.8XXA Other cause of strike by thrown, projected or falling object, initial encounter; Y93.89 Activity, other specified; Y99.9 Unspecified external cause status; Y92.009 Unspecified place in unspecified non-institutional (private) residence as the place of occurrence of the external cause; F17.210 Nicotine dependence, cigarettes, uncomplicated